=== PATIENT | male | born 1980 | race Caucasian/White ===

== ENCOUNTER 2022-12-22 14:12 | Emergency (ER) | payer MEDICAID ==
[~2022-12-22] VITALS: Ht 157.5 cm; Wt 72.6 kg
--- NOTE | 2022-12-22 14:35 | NUR ---
flat cutter at bedside
[2022-12-22 14:55] LABS: BASOPHILS % (AUTO) 0.8 % (0.0-2.0); EOSINOPHILS % (AUTO) 0.7 % (0.0-6.0); HEMATOCRIT 42 % (39-51); LYMPHOCYTES # (AUTO) 1.7 K/uL (0.8-4.8); LYMPHOCYTES % (AUTO) 39.8 % (20.0-44.0); MEAN CORPUSCULAR HGB CONC 33 g/dl (31.0-36.0); MEAN CORPUSCULAR VOLUME 91 fL (80-96); MONOCYTES # (AUTO) 0.3 K/uL (0.1-1.30); MONOCYTES % (AUTO) 7.4 % (2.0-12.0); NEUTROPHILS # (AUTO) 2.2 K/uL (1.8-8.9); NEUTROPHILS % (AUTO) 51.3 % (43.0-81.0); PLATELET COUNT (AUTO) 166 K/uL (150-450); RED BLOOD CELL COUNT(AUTO) 4.62 MIL/uL (4.5-6.0); WHITE BLOOD COUNT (AUTO) 4.3 K/uL (4.3-11.0)
[2022-12-22 15:06] LABS: CALCIUM, SERUM 8.5 mg/dL (8.5-10.1); CARBON DIOXIDE 29 mmol/L (21-32); CHLORIDE 107 mmol/L (98-107); CREATININE 1.1 mg/dL (0.6-1.3); GLUCOSE 119 mg/dL (74-106); POTASSIUM 3.4 mmol/L (3.5-5.1); SODIUM SERUM 142 mmol/L (136-145); UREA NITROGEN, BLOOD 11 mg/dL (7-18)
--- NOTE | 2022-12-22 15:08 | NUR ---
iv established. RFA 20g
[2022-12-22] MEDS ORDERED: IBUPROFEN 600 MG TABLET ONE (16:23)
[2022-12-22] MEDS ORDERED: IBUPROFEN 600 MG TABLET PO ONE (16:30)
[2022-12-22] MEDS ORDERED: IBUP-1955 PO (17:22)
[2022-12-22 17:32] VITALS: BP 133/85
--- NOTE | 2022-12-22 17:32 | NUR ---
Patient discharged to home in stable condition, ambulating. Written and verbal after care instructions given. Patient verbalizes understanding of instruction.
== END 2022-12-22 17:33 | disposition home or self-care (01) ==
LOC: ER 14:17
DX: R07.89 Other chest pain (principal)
CPT/HCPCS: 36415; 71045-TC; 80048-TC; 83735-TC; 84484-TC; 85025-TC